=== PATIENT | male | born 1985 | race Caucasian/White ===

== ENCOUNTER → 2017-10-22 | Outpatient (CLI) | payer OTHER ==
[~2017-10-22] MED LIST: TEST1DIS TOP
--- NOTE | 2017-10-22 11:45 | DIAGNOSTIC IMAGING REPORT ---
RIGHT WRIST 4 VIEWS CLINICAL HISTORY: Wrist pain. Fall several months ago. FINDINGS: 4 views the right wrist are compared to study dated 12/08/2008. The skeletal structures are well mineralized. 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 The orthopedic hardware appears intact. No sclerotic change is identified within the scaphoid. There is age advanced degenerative narrowing at the radiocarpal articulation. There is no widening of the scaphoid and the lunate. The joint spaces are otherwise preserved. Cystic changes noted in the trapezoid. The overlying soft tissues are normal in appearance. IMPRESSION: 1. No acute fracture is identified. If there is clinical concern for occult fracture consider short-term radiographic follow-up or possibly CT given the patient's history. 2. Chronic posttraumatic and postoperative change is noted in the scaphoid. Electronically signed by: Darrel Tello M.D. 10/22/2017 11:44 AM Dictated Date/Time: 10/22/2017 11:40 AM
[2017-10-22 13:17] LABS: BASO % 0.4 %; BASO ABS # 0.02 K/uL (0-0.2); HEMATOCRIT 42.7 % (42-52); HEMOGLOBIN 14.6 g/dL (14.0-18.0); IG# 0.01 K/uL (0.00-0.02); LYMPH % 42.1 %; LYMPH ABS # 2.07 K/uL (1.2-3.4); MEAN CELL VOLUME 91.2 fL (80-100); MEAN CORPUSCULAR HEMOGLOBIN 31.2 pg (25-34); MEAN CORPUSCULAR HGB CONC 34.2 g/dl (32-36); MEAN PLATELET VOLUME 10.6 fL (7.4-10.4); MONO % 6.5 %; MONO ABS # 0.32 K/uL (0.11-0.59); NEUT % 48.8 %; PLATELET COUNT 230 K/uL (130-400); RED CELL DISTRIBUTION WIDTH CV 13.5 % (11.5-14.5); RED CELL DISTRIBUTION WIDTH SD 44.5 fL (36.4-46.3); WHITE BLOOD COUNT 4.92 K/uL (4.8-10.8)
[2017-10-22 13:24] LABS: ALT/SGPT 172 U/L (12-78); BLOOD UREA NITROGEN 16 mg/dl (7-18); CALCIUM 9.1 mg/dl (8.5-10.1); CARBON DIOXIDE 27 mmol/L (21-32); CREATININE 0.97 mg/dl (0.60-1.40); GLUCOSE 66 mg/dl (70-99); POTASSIUM 3.6 mmol/L (3.5-5.1); SODIUM 140 mmol/L (136-145)
[2017-10-22 13:35] LABS: ALKALINE PHOSPHATASE 80 U/L (45-117); AST/SGOT 97 U/L (15-37); TOTAL PROTEIN 7.9 gm/dl (6.4-8.2)
== END | disposition home or self-care (01) ==
LOC: C.RADBC 10:40
PROVIDERS: ATTEND Family Medicine Adult Medicine
DX: M25.531 Pain in right wrist (principal); Z91.81 History of falling